=== PATIENT | male | born 1955 | race Caucasian/White ===

== ENCOUNTER 2016-09-15 23:35 | Emergency (ER) | payer OTHER ==
[~2016-09-15] VITALS: Ht 185.4 cm; Wt 108.9 kg
[2016-09-16 00:17] LABS: BASO % 1 % (0-3); EOS % 2 % (0-3); HEMATOCRIT 45.1 % (39.0-53.0); HEMOGLOBIN 15.5 g/dL (13.0-17.5); LYMPH # 1.7 x10^3/uL (1.0-4.8); LYMPH % 20 % (24-48); MEAN CORPUSCULAR HEMOGLOBIN 32 pg (25-35); MEAN CORPUSCULAR HGB CONC 35 g/dL (31-37); MEAN CORPUSCULAR VOLUME 92 fL (79-100); MONO % 11 % (0-9); NEUT % 66 % (31-73); PLATELET COUNT 160 x10^3/uL (140-400); RED BLOOD COUNT 4.93 x10^6/uL (4.30-5.70); RED CELL DISTRIBUTION WIDTH 13.5 % (11.5-14.5); WHITE BLOOD COUNT 8.7 x10^3/uL (4.0-11.0)
[2016-09-16 00:28] LABS: CALCIUM 8.7 mg/dL (8.5-10.1); CREATININE 1.2 mg/dL (0.7-1.3); GFR 61.1; POTASSIUM 3.7 mmol/L (3.5-5.1)
[2016-09-16] MEDS ORDERED: KETOROLAC 15 MG/ML VIAL. IV ONE (00:30)
[2016-09-16 00:33] LABS: ALBUMIN 3.6 g/dL (3.4-5.0); ALBUMIN/GLOBULIN RATIO 0.9 (1.0-1.7); TOTAL BILIRUBIN 0.6 mg/dL (0.2-1.0); TOTAL PROTEIN 7.6 g/dL (6.4-8.2)
[2016-09-16 02:30] VITALS: BP 128/80
--- NOTE | 2016-09-16 02:38 | PHYS DOC ---
Past Medical History Past Medical History: No Pertinent History Past Surgical History: Other Additional Past Surgical Histo: R ELBOW Alcohol Use: None Drug Use: None Adult General Chief Complaint Chief Complaint: Neck Pain HPI HPI Patient is a 61 year old gentleman who presents here today secondary to pain to his neck that occurred suddenly while he was watching TV. Patient reports that the pain radiates from the mid neck down to his left shoulder and left side of his back. Patient reports that the pain is initially a sharp type of discomfort patient denies any chest pain terns breath nausea vomiting diarrhea cough cold Raynaud's abdominal pain headache or dizziness. Patient has any weakness his upper or lower 70s. Patient denies any change in vision. Patient was concerned because the pain came on suddenly. Patient denies any history of hypertension diabetes liver longer kidney problems. No prior abdominal surgeries. Patient not smoke drink or do any drugs. Patient allergic to any medications. Patient reports that earlier today he changes he was on his vehicle and he was on the ground looking up for a short while. Patient's physical exam was significant for tenderness to palpation to his left shoulder and left neck area. Patient had no carotid thrills or bruits. Patient has no weakness his upper or lower 70s. Patient is 5 out of 5 upper extremities. Patient's sensation is intact. Patient's reflexes were normal. Patient has CT scan of his C-spine which did not reveal any acute pathology. Assessment and plan 61-year-old gentleman with acute onset neck pain likely mechanical in nature. She does give a history of laying on his back for short while changing the oil in his vehicle and is looking up and laying down the ground. I suspect this might be an exacerbating cause however it is impossible to say exactly what causing this person's pain. Do not believe that the patient has any acute pathology that would require any further inpatient her ER evaluation at this time. I have discussed the patient that there is always a possibility that he might have a herniated disc although neurologically he is intact he will need to have a follow-up with his primary care physician if the pain persists despite medicines that we have given him for an outpatient MRI. She is doing much better after the pain with a received. Review of Systems Review of Systems Constitutional: Denies fever or chills [] Eyes: Denies change in visual acuity, redness, or eye pain [] HENT: Denies nasal congestion or sore throat [] All other review systems are negative except as documented in history of present illness portion. Current Medications Current Medications Current Medications Medications (Trade) Dose Ordered Sig/Christa Start Time Stop Time Status Last Admin Dose Admin Ketorolac Tromethamine (Toradol) 15 mg 1X ONCE 09/16/16 00:30 09/16/16 00:31 DC 09/16/16 00:42 15 MG Allergies Allergies Allergies Coded Allergies Type Severity Reaction Last Updated Verified No Known Drug Allergies 09/16/16 No Physical Exam Physical Exam Constitutional: Well developed, well nourished, no acute distress, non-toxic appearance. [] HENT: Normocephalic, atraumatic, bilateral external ears normal, oropharynx moist, no oral exudates, nose normal. [] Eyes: PERRLA, EOMI, conjunctiva normal, no discharge. [] Neck: Normal range of motion, no tenderness, supple,] Cardiovascular:Heart rate regular rhythm, Lungs & Thorax: Bilateral breath sounds clear to auscultation [] Abdomen: Bowel sounds normal, soft, no tenderness, no masses, no pulsatile masses. [] Skin: Warm, dry, no erythema, no rash. [] Back: No tenderness, no CVA tenderness. [] Extremities: No tenderness, no cyanosis, no clubbing, ROM intact, no edema. [] Neurologic: Alert and oriented X 3, normal motor function, normal sensory function, no focal deficits noted. [] Psychologic: Affect normal, judgement normal, mood normal. [] Current Patient Data Vital Signs Vital Signs Date Time Temp Pulse Resp B/P (MAP) Pulse Ox O2 Delivery O2 Flow Rate FiO2 09/16/16 02:30 48 10 128/80 (96) 95 Room Air 09/15/16 23:58 98.5 98.5 Lab Values Laboratory Tests Test 09/16/16 00:02 White Blood Count 8.7 x10^3/uL (4.0-11.0) Red Blood Count 4.93 x10^6/uL (4.30-5.70) Hemoglobin 15.5 g/dL (13.0-17.5) Hematocrit 45.1 % (39.0-53.0) Mean Corpuscular Volume 92 fL (79-100) Mean Corpuscular Hemoglobin 32 pg (25-35) Mean Corpuscular Hemoglobin Concent 35 g/dL (31-37) Red Cell Distribution Width 13.5 % (11.5-14.5) Platelet Count 160 x10^3/uL (140-400) Neutrophils (%) (Auto) 66 % (31-73) Lymphocytes (%) (Auto) 20 % (24-48) L Monocytes (%) (Auto) 11 % (0-9) H Eosinophils (%) (Auto) 2 % (0-3) Basophils (%) (Auto) 1 % (0-3) Neutrophils # (Auto) 5.7 x10^3uL (1.8-7.7) Lymphocytes # (Auto) 1.7 x10^3/uL (1.0-4.8) Monocytes # (Auto) 1.0 x10^3/uL (0.0-1.1) Eosinophils # (Auto) 0.2 x10^3/uL (0.0-0.7) Basophils # (Auto) 0.0 x10^3/uL (0.0-0.2) Sodium Level 137 mmol/L (136-145) Potassium Level 3.7 mmol/L (3.5-5.1) Chloride Level 102 mmol/L (98-107) Carbon Dioxide Level 26 mmol/L (21-32) Anion Gap 9 (6-14) Blood Urea Nitrogen 27 mg/dL (8-26) H Creatinine 1.2 mg/dL (0.7-1.3) Estimated GFR (Cockcroft-Gault) 61.1 BUN/Creatinine Ratio 23 (6-20) H Glucose Level 115 mg/dL (70-99) H Calcium Level 8.7 mg/dL (8.5-10.1) Total Bilirubin 0.6 mg/dL (0.2-1.0) Aspartate Amino Transferase (AST) 26 U/L (15-37) Alanine Aminotransferase (ALT) 30 U/L (16-63) Alkaline Phosphatase 96 U/L (46-116) Troponin I Quantitative < 0.017 ng/mL (0.000-0.055) Total Protein 7.6 g/dL (6.4-8.2) Albumin 3.6 g/dL (3.4-5.0) Albumin/Globulin Ratio 0.9 (1.0-1.7) L Laboratory Tests 09/16/16 00:02 Laboratory Tests 09/16/16 00:02 EKG EKG [] Radiology/Procedures Radiology/Procedures [] Course & Med Decision Making Course & Med Decision Making Pertinent Labs and Imaging studies reviewed. (See chart for details) [] Dragon Disclaimer Dragon Disclaimer This electronic medical record was generated, in whole or in part, using a voice recognition dictation system. Departure Departure Impression: Primary Impression: Neck pain Disposition: HOME, SELF-CARE Condition: IMPROVED Referrals: UNKNOWN PCP NAME (PCP) Patient Instructions: Soft Tissue Injury of the Neck Additional Instructions: Follow-up with her family doctor have any further problems. Return to the ER if the pain returns, or any other concerns. Return to the ER. Any chest pain, shortness of breath, nausea or vomiting. ROLDAN BECERRA MD September 16, 2016 02:38
--- NOTE | 2016-09-16 08:05 | RAD ---
Indication pain. AP and lateral views of the cervical spine were obtained. A swimmer's view was also obtained. An odontoid view was not obtained. No acute or significant bony finding is seen. Significant degenerative changes are not apparent. The prevertebral soft tissues appear unremarkable. IMPRESSION: No acute or significant bony finding
--- NOTE | 2016-09-16 12:09 | EKG ---
[facility] [address] [place] [address] Test Date: 2016-09-15 Test Time: 23:48:45 Pat Name: JULIEN OLIVA Department: Room: Gender: M Medical Office Technologist: OLY : 1955 Requested By: ROLDAN BECERRA Order Number: [id number] Reading MD: Bhumi Ricardo Measurements Intervals [place] Rate: 51 P: 23 SC: 160 QRS: -41 QRSD: 110 T: -26 QT: 446 QTc: 413 Interpretive Statements SINUS RHYTHM ABNORMAL LEFT AXIS DEVIATION LEFT ANTERIOR FASCICULAR BLOCK QRS(T) CONTOUR ABNORMALITY CONSIDER ANTEROSEPTAL MYOCARDIAL DAMAGE T ABNORMALITY IN ANTEROLATERAL LEADS INFEROLATERAL LEADS RI6.01 Unconfirmed report No previous ECG available for comparison Electronically Signed On 09-16-2016 18:24:08 CDT by Bhuim Ricardo
== END 2016-09-16 02:45 | disposition home or self-care (01) ==
LOC: ER 23:35
DX: M54.2 Cervicalgia (principal)
CPT/HCPCS: 36415; 72040; 80053; 84484; 85027; 93005; 96374; 99285; J1885

== ENCOUNTER 2019-12-25 15:33 | Emergency (ER) | payer OTHER ==
[~2019-12-25] VITALS: Ht 185.4 cm; Wt 111.3 kg
--- NOTE | 2019-12-25 16:18 | EKG ---
[facility] [address] [place] [address] Test Date: 2019-12-25 Test Time: 16:02:23 Pat Name: JULIEN OLIVA Department: Room: Gender: M Manager Travel: : 1955 Requested By: SIMEON NAVA Order Number: [id number] Reading MD: Measurements Intervals [place] Rate: 55 P: 52 ID: 160 QRS: -45 QRSD: 106 T: -14 QT: 450 QTc: 433 Interpretive Statements SINUS RHYTHM ABNORMAL LEFT AXIS DEVIATION LEFT ANTERIOR FASCICULAR BLOCK T ABNORMALITY IN INFERIOR LEADS ABNORMAL ECG RI6.02 No previous ECG available for comparison
[2019-12-25] MEDS ORDERED: ONDANSETRON PF 4 MG/2 ML VIAL. IVP ONE (16:30)
[2019-12-25] MEDS ORDERED: IOHEXOL 240 MG/ML 50ML VIAL. PO ONE (16:30)
[2019-12-25] MEDS ORDERED: IV NORMAL SALINE 1000ML BAG 1,000 ML IV ONE (16:30)
[2019-12-25] MEDS ORDERED: CONTRAST GIVEN. MC PRN (16:30)
[2019-12-25] MEDS ORDERED: MORPHINE SULFATE 10 MG/ML VIAL. IV ONE (16:30)
[2019-12-25] MEDS ORDERED: IOHEXOL 300 MG/ML 100ML VIAL. IV ONE (16:30)
[2019-12-25 16:41] LABS: BASO # 0.1 x10^3/uL (0.0-0.2); BASO % 1 % (0-3); EOS % 0 % (0-3); HEMOGLOBIN 15.6 g/dL (13.0-17.5); LYMPH # 1.1 x10^3/uL (1.0-4.8); LYMPH % 7 % (24-48); MEAN CORPUSCULAR HEMOGLOBIN 32 pg (25-35); MEAN CORPUSCULAR HGB CONC 35 g/dL (31-37); MEAN CORPUSCULAR VOLUME 89 fL (79-100); MONO # 0.7 x10^3/uL (0.0-1.1); MONO % 5 % (0-9); NEUT # 12.7 x10^3/uL (1.8-7.7); NEUT % 87 % (31-73); PLATELET COUNT 182 x10^3/uL (140-400); RED BLOOD COUNT 4.92 x10^6/uL (4.30-5.70); RED CELL DISTRIBUTION WIDTH 13.4 % (11.5-14.5); WHITE BLOOD COUNT 14.6 x10^3/uL (4.0-11.0)
[2019-12-25 16:52] LABS: CALCIUM 9.1 mg/dL (8.5-10.1); CREATININE 1.5 mg/dL (0.7-1.3); GFR 46.8; POTASSIUM 4.3 mmol/L (3.5-5.1)
[2019-12-25 16:55] LABS: % BANDS 3 % (0-9); % LYMPHS 4 % (24-48); % MONOS 5 % (0-10); % SEGS 88 % (35-66); PLT ESTIMATE ADEQUATE (ADEQUATE)
[2019-12-25 16:58] LABS: ALBUMIN 3.9 g/dL (3.4-5.0); TOTAL BILIRUBIN 0.7 mg/dL (0.2-1.0); TOTAL PROTEIN 7.8 g/dL (6.4-8.2)
--- NOTE | 2019-12-25 17:17 | PHYS DOC ---
Past Medical History Past Medical History: No Pertinent History (SIMEON NAVA MD) Past Surgical History: Other Additional Past Surgical Histo: R ELBOW (SIMEON NAVA MD) Smoking Status: Never Smoker Alcohol Use: None Drug Use: None (SIMEON NAVA MD) General Adult EDM: Chief Complaint: ABDOMINAL PAIN HPI: HPI: Patient 64-year-old previously healthy male who presents to the emergency room complaining of severe abdominal pain. Patient states that he felt fine yesterday and when he first woke up this morning. He then had onset of mid abdominal pain around his umbilicus that radiates around his entire abdomen like a band. It also goes into his back. He states that the pain feels tight and sharp. He has some nausea and vomiting with this. He denies any constipation or diarrhea. He has not had any fever. He is not wanting to eat anything all day. He is never had anything like this previously. He is never had surgery before. Drinking anything makes the pain worse. (SIMEON NAVA MD) Review of Systems: Review of Systems: General: Denies fever, chills, sweats, fatigue Eyes: Denies drainage, blurred vision, eye redness HENT: Denies rhinorrhea, sore throat, earache Respiratory: Denies cough, shortness of breath, wheezing Cardiac: Denies edema, palpitations, chest pain GI: Reports abdominal pain, nausea, vomiting MSK: Denies back pain, neck pain Skin: Denies rash, jaundice Neuro: Denies headache, dizziness Psychiatric: Denies SI/HI (SIMEON NAVA MD) Heart Score: Risk Factors: Risk Factors: DM, Current or recent (<one month) smoker, HTN, HLP, family history of CAD, obesity. Risk Scores: Score 0 - 3: 2.5% MACE over next 6 weeks - Discharge Home Score 4 - 6: 20.3% MACE over next 6 weeks - Admit for Clinical Observation Score 7 - 10: 72.7% MACE over next 6 weeks - Early Invasive Strategies (SIMEON NAVA MD) Current Medications: Current Medications Medications (Trade) Dose Ordered Sig/Christa Start Time Stop Time Status Last Admin Dose Admin Info (CONTRAST GIVEN -- Rx MONITORING) 1 each PRN DAILY PRN 12/25/19 16:30 12/27/19 16:29 Iohexol (Omnipaque 240 Mg/ml) 30 ml 1X ONCE 12/25/19 16:30 12/25/19 16:31 DC Iohexol (Omnipaque 300 Mg/ml) 75 ml 1X ONCE 12/25/19 16:30 12/25/19 16:31 DC Morphine Sulfate (Morphine Sulfate) 5 mg 1X ONCE 12/25/19 16:30 12/25/19 16:31 DC 12/25/19 16:43 5 MG Ondansetron HCl (Zofran) 4 mg 1X ONCE 12/25/19 16:30 12/25/19 16:31 DC 12/25/19 16:42 4 MG Sodium Chloride 1,000 ml @ 1,000 mls/hr 1X ONCE 12/25/19 16:30 12/25/19 17:29 12/25/19 16:42 1,000 MLS/HR (SIMEON NAVA MD) Allergies: Allergies: Allergies Coded Allergies Type Severity Reaction Last Updated Verified simvastatin Allergy Intermediate Itching/swelling 12/25/19 Yes (SIMEON NAVA MD) Physical Exam: PE: General: Awake, alert, NAD. Well Nourished, well hydrated. Cooperative HEENT: Atraumatic, EOMI, PERRL, airway patent, moist oral mucosa Neck: Supple, trachea midline Respiratory: CTA bilaterally, normal effort, no wheezing/crackles CV: RRR, no murmur, cap refill <2 GI: Soft, diffuse tenderness worse in the lower abdomen MSK: No obvious deformities Skin: Warm, dry, intact Neuro: A&O x3, speech NL, sensory and motor grossly intact, no focal deficits Psych: Normal affect, normal mood, not suicidal or homicidal (SIMEON NAVA MD) Current Patient Data: Labs: Laboratory Tests Test 12/25/19 16:30 White Blood Count 14.6 x10^3/uL (4.0-11.0) H Red Blood Count 4.92 x10^6/uL (4.30-5.70) Hemoglobin 15.6 g/dL (13.0-17.5) Hematocrit 44.0 % (39.0-53.0) Mean Corpuscular Volume 89 fL (79-100) Mean Corpuscular Hemoglobin 32 pg (25-35) Mean Corpuscular Hemoglobin Concent 35 g/dL (31-37) Red Cell Distribution Width 13.4 % (11.5-14.5) Platelet Count 182 x10^3/uL (140-400) Neutrophils (%) (Auto) 87 % (31-73) H Lymphocytes (%) (Auto) 7 % (24-48) L Monocytes (%) (Auto) 5 % (0-9) Eosinophils (%) (Auto) 0 % (0-3) Basophils (%) (Auto) 1 % (0-3) Neutrophils # (Auto) 12.7 x10^3/uL (1.8-7.7) H Lymphocytes # (Auto) 1.1 x10^3/uL (1.0-4.8) Monocytes # (Auto) 0.7 x10^3/uL (0.0-1.1) Eosinophils # (Auto) 0.0 x10^3/uL (0.0-0.7) Basophils # (Auto) 0.1 x10^3/uL (0.0-0.2) Segmented Neutrophils % 88 % (35-66) H Band Neutrophils % 3 % (0-9) Lymphocytes % 4 % (24-48) L Monocytes % 5 % (0-10) Platelet Estimate Adequate (ADEQUATE) Sodium Level 138 mmol/L (136-145) Potassium Level 4.3 mmol/L (3.5-5.1) Chloride Level 103 mmol/L (98-107) Carbon Dioxide Level 25 mmol/L (21-32) Anion Gap 10 (6-14) Blood Urea Nitrogen 25 mg/dL (8-26) Creatinine 1.5 mg/dL (0.7-1.3) H Estimated GFR (Cockcroft-Gault) 46.8 BUN/Creatinine Ratio 17 (6-20) Glucose Level 119 mg/dL (70-99) H Calcium Level 9.1 mg/dL (8.5-10.1) Total Bilirubin 0.7 mg/dL (0.2-1.0) Aspartate Amino Transferase (AST) 30 U/L (15-37) Alanine Aminotransferase (ALT) 29 U/L (16-63) Alkaline Phosphatase 79 U/L (46-116) Total Protein 7.8 g/dL (6.4-8.2) Albumin 3.9 g/dL (3.4-5.0) Albumin/Globulin Ratio 1.0 (1.0-1.7) Lipase 90 U/L (73-393) Laboratory Tests 12/25/19 16:30 Laboratory Tests 12/25/19 16:30 Vital Signs: Vital Signs Date Time Temp Pulse Resp B/P (MAP) Pulse Ox O2 Delivery O2 Flow Rate FiO2 12/25/19 16:43 98 Room Air 12/25/19 15:55 97.9 58 18 150/73 (98) 97.9 (SIMEON NAVA MD) EKG: EKG: [] (SIMEON NAVA MD) Radiology/Procedures: Radiology/Procedures: [] (SIMEON NAVA MD) Course & Med Decision Making: Course & Med Decision Making Pertinent Labs and Imaging studies reviewed. (See chart for details) Patient is a 64 year-old male who presents to the Emergency Room complaining of abdominal pain, nausea, vomiting. On exam, patient has diffuse tenderness. Due to patients history, age, and exam work up will need to be done to evaluate for intra-abdominal pathology. Work up ordered includes CBC, CMP, lipase, UA, CT abdomen and pelvis. Patient's pain is not epigastric and a cardiac evaluation does not be needed for atypical pain. Ddx includes pancreatitis, cholecystitis, diverticulitis, gastroenteritis, appendicitis, bowel obstruction. Patient discussed with oncoming physician who will assume care. (SIMEON NAVA MD) Course & Med Decision Making 2116- patient was seen and reevaluated. Patient appeared comfortable at the time of discharge. I answered all questions concerning his treatment plan and results of the testing. At this time there is no evidence for an infection. I think at this time he is stable for discharge. I discussed reasons to return, treatment plan and need for follow-up. (RASHID JOYNER MD) [place] Disclaimer: [place] Disclaimer: This electronic medical record was generated, in whole or in part, using a voice recognition dictation system. (SIMEON NAVA MD) Departure Departure Impression: Primary Impression: Abdominal pain Qualified Codes: R10.33 - Periumbilical pain Additional Impressions: Ureterolithiasis Renal colic Disposition: HOME, SELF-CARE Condition: IMPROVED Referrals: UNKNOWN PCP NAME (PCP) Patient Instructions: Diet for Kidney Stones, Kidney Stones Additional Instructions: Please strain the urine. Follow-up with your PCP Scripts Oxycodone HCl/Acetaminophen (Percocet 5-325 mg Tablet) 1 Each Tablet 1 TAB PO QIDPRN PRN for PAIN MDD 4 Tablet(s) for 5 Days, #15 TAB 0 Refills Prov: RASHID JOYNER MD 12/25/19 Tamsulosin Hcl (FLOMAX) 0.4 Mg Cap.er.24h 0.4 MG PO DAILY, #5 TAB Prov: RASHID JOYNER MD 12/25/19 Justicifation of Admission Dx: Justifications for Admission: Justification of Admission Dx: Yes (SIMEON NAVA MD) Justification of Admission Dx: N/A (RASHID JOYNER MD) SIMEON NAVA MD Dec 25, 2019 17:17 RASHID JOYNER MD Dec 25, 2019 21:03
--- NOTE | 2019-12-25 17:38 | RAD ---
Exam: CT abdomen and pelvis with contrast INDICATION: Abdomen pain TECHNIQUE: Sequential axial images through the abdomen and pelvis obtained following the administration of 60 mL of Omni 300 IV contrast. Sagittal and coronal reformatted images were reconstructed from the axial data and reviewed. Comparisons: None FINDINGS: Heart size is normal. No pericardial effusion. Strandy opacities at dependent portion lungs likely representing atelectasis. No pleural effusion. Liver, spleen, pancreas, gallbladder and adrenals are unremarkable. There is delayed enhancement of the left kidney with moderate left-sided hydronephrosis. There is a 4 mm calculus at the left ureteropelvic junction. Several nonobstructing left renal calculi are also noted. No other ureteral calculi are seen. Bladder is decompressed not well evaluated. Prostate is not enlarged. Large and small bowel are unremarkable. Appendix is normal. No free abdominal air or fluid. No obstruction. Abdominal aorta has a normal course and caliber. No enlarged intra-abdominal lymph nodes are identified. No suspicious osseous lesions or acute fractures. IMPRESSION: 1. A 4 mm obstructing calculus at the left ureteropelvic junction causing moderate left-sided hydronephrosis. 2. Several nonobstructing left renal calculi also noted. Exposure: One or more of the following in the visualized dose reduction techniques were utilized for this examination: 1. Automated exposure control 2. Adjustment of the MA and/or KV according to patient size 3. Use of iterative of reconstructive technique Electronically signed by: Janice Marrero MD (12/25/2019 5:35 PM) [id number]
[2019-12-25 18:34] LABS: BILIRUBIN,URINE NEGATIVE (NEG); CLARITY,URINE CLEAR; COLOR,URINE YELLOW; NITRITE,URINE NEGATIVE (NEG); PROTEIN,URINE NEGATIVE (NEG-TRACE)
[2019-12-25 18:46] LABS: BACTERIA,URINE 0 /HPF (0-FEW); WBC,URINE 0 /HPF (0-4)
[2019-12-25] MEDS ORDERED: TAMS0.4C97 PO (21:16)
[2019-12-25] MEDS ORDERED: OXYC-325 PO (21:16)
[2019-12-25 22:00] VITALS: BP 145/74
== END 2019-12-25 22:09 | disposition home or self-care (01) ==
LOC: ER 15:33
DX: N13.2 Hydronephrosis with renal and ureteral calculous obstruction (principal); R10.33 Periumbilical pain; R11.2 Nausea with vomiting, unspecified; Z88.8 Allergy status to other drugs, medicaments and biological substances; Z98.890 Other specified postprocedural states
CPT/HCPCS: 36415; 74177; 80053; 81001; 83690; 85007; 85025; 93005; 96361; 96374; 96375; 99285; J2270; J2405; J7030; Q9966; Q9967